=== PATIENT | female | born 1935 | race Caucasian/White ===

== ENCOUNTER 2020-06-17 10:15 | Emergency (ER) | payer MEDICAID, MEDICARE ==
[~2020-06-17] VITALS: Ht 152.4 cm; Wt 81.6 kg
--- NOTE | 2020-06-17 11:15 | NUR ---
Patient to ER bed 02 to gown for evaluation. Side rails up.
--- NOTE | 2020-06-17 11:17 | NUR ---
Patient arrived in the ED c/o dizziness for the last 2 days. Denied any chest pain or shortness of breath. Denied any fevers, chills, nausea or vomiting. Patient is alert and oriented x4, respirations even and unlabored, speaking in full sentences, and ambulating with assistance. VSS, pain level 0/10. Informed of the approximate wait time. Instructed to notify ED staff for any changes in condition or worsening of symptoms while waiting to be seen by an ED provider. Patient verbalized understanding.
[2020-06-17 11:22] VITALS: BP_SYST 147
--- NOTE | 2020-06-17 11:25 | NUR ---
# 20 gauge angiocath placed to LFA. Use of asceptic technique. Opsite placed over site. Blood return noted. Blood for lab drawn from site. Flushed with 10 cc of normal saline. No evidence of infiltration noted. Patient tolerated well.
--- NOTE | 2020-06-17 11:32 | NUR ---
ER Dr. Puri at bedside examining patient.
[2020-06-17] MEDS ORDERED: MECL12.584 PO (11:46)
[2020-06-17] MEDS ORDERED: HYG25 PO (11:46)
[2020-06-17] MEDS ORDERED: LOSA50TA3 PO (11:46)
[2020-06-17] MEDS ORDERED: MV-M1TAB57 PO (11:46)
--- NOTE | 2020-06-17 11:47 | NUR ---
Medication reconciliation completed with information provided by pharmacy medications brought in by family. Any prior medication reconciliation on file was reviewed and corrected.
[2020-06-17 11:50] LABS: BILIRUBIN,URINE NEGATIVE (NEGATIVE); CLARITY/URINE SL CLOUDY (CLEAR); COLOR,URINE YELLOW (YELLOW); GLUCOSE,URINE NEGATIVE (NEGATIVE); KETONES,URINE NEGATIVE (NEGATIVE); LEUKOCYTE ESTERASE ,URINE 2+ (NEGATIVE); NITRITE, URINE NEGATIVE (NEGATIVE); PH,URINE 6.5 (5.0-8.0); PROTEIN URINE NEGATIVE (NEGATIVE); UROBILINOGEN,URINE 0.2 (0.2-1.0)
[2020-06-17 11:53] LABS: BLOOD, URINE TRACE (NEGATIVE)
[2020-06-17 12:16] LABS: RBC,URINE 0-3 /HPF (0-3)
[2020-06-17 12:17] LABS: BACTERIA,URINE None Seen /HPF (None Seen); TRICHOMONAS,URINE None Seen /HPF (None Seen); YEAST,URINE None Seen /HPF (None Seen)
[2020-06-17 12:28] LABS: BASOPHILS # (AUTO) 0.1 K/uL (0.0-0.2); BASOPHILS % (AUTO) 1.1 % (0.0-2.0); EOSINOPHILS # (AUTO) 0.1 K/uL (0.0-0.4); EOSINOPHILS % (AUTO) 1.6 % (0.0-4.0); HEMATOCRIT 34.7 % (36-48); HEMOGLOBIN 11.7 g/dL (12.0-16.0); LYMPHOCYTES # (AUTO) 1.6 K/uL (1.0-5.5); LYMPHOCYTES % (AUTO) 27.7 % (20.5-51.5); MEAN CORPUSCULAR HEMOGLOBIN 32 pg (27-31); MEAN CORPUSCULAR HGB CONC 34 % (32-36); MEAN CORPUSCULAR VOLUME 94 fL (79.0-98.0); MONOCYTES # (AUTO) 0.5 K/uL (0.0-1.0); MONOCYTES % (AUTO) 8.1 % (1.7-9.3); NEUTROPHILS # (AUTO) 3.6 K/uL (1.8-7.7); NEUTROPHILS % (AUTO) 61.5 % (40.0-70.0); PLATELET COUNT (AUTO) 209 K/uL (130-430); RED BLOOD CELL COUNT(AUTO) 3.72 MIL/uL (4.2-6.2); RED CELL DISTRIBUTION WIDTH 13.5 % (9.0-15.0); WHITE BLOOD COUNT (AUTO) 5.8 K/uL (4.8-10.8)
[2020-06-17 12:40] LABS: ANION GAP 6 (5-15); CALCIUM 9.2 mg/dL (8.4-11.0); CHLORIDE 104 mmol/L (98-107); CREATININE 0.65 mg/dL (0.55-1.30); GLUCOSE 84 mg/dL (70-99); SODIUM SERUM 139 mmol/L (136-145); UREA NITROGEN, BLOOD 25 mg/dL (8-21)
[2020-06-17 12:46] LABS: ALANINE AMINOTRANSFERASE 19 U/L (12-78); ASPARTATE AMINOTRANSFERASE 26 U/L (10-37); TOTAL BILIRUBIN 0.3 mg/dL (0.0-1.0)
[2020-06-17 12:47] LABS: POTASSIUM 2.9 mmol/L (3.5-5.1)
--- NOTE | 2020-06-17 13:00 | NUR ---
Administered Rocephin IVPB and Potassium Packet PO as ordered by Dr. Puri. Patient tolerated the medications well. See eMAR for details.
[2020-06-17] MEDS: cefTRIAXone 1 GM in D5W 50 ML IV ONE (13:05)
[2020-06-17] MEDS: POTASSIUM CHLORIDE 20 MEQ/PKT PACKET PO ONE (13:05)
[2020-06-17] MEDS ORDERED: cefTRIAXone 1 GM VIAL ONE (14:04)
[2020-06-17 14:29] VITALS: BP_SYST 147
--- NOTE | 2020-06-17 14:30 | NUR ---
Patient given written and verbal discharge instructions and verbalizes understanding. ER MD discussed with patient the results and treatment provided. Patient in stable condition. ID arm band removed. Rx of macrobid given. Patient educated on pain management and to follow up with PMD. Pain Scale 0/10 . Opportunity for questions provided and answered. Medication side effect fact sheet provided.
== END 2020-06-17 14:30 | disposition home or self-care (01) ==
LOC: SED 10:15
DX: N39.0 Urinary tract infection, site not specified (principal); I10 Essential (primary) hypertension; Z79.899 Other long term (current) drug therapy
CPT/HCPCS: 36415; 80053; 81000; 85025; 87040; 87086; 96365; 99284; J0696